=== PATIENT | male | born 1955 | race Caucasian/White ===

== ENCOUNTER 2018-01-01 18:30 | Observation (INO) ==
--- NOTE | 2018-01-01 19:22 | ED ---
HPI General Chief Complaint: Chest Pain Stated Complaint: chest pain Time Seen by Provider: 01/01/18 18:53 History of Present Illness HPI narrative: This is a 62-year-old with a history of coronary artery disease, hypertension, hyperlipidemia, who was today with complaints of chest pain since yesterday. Patient states that he had chest pain last night. He reports that he also woke up this morning with chest pain. Patient reports that he and his is just driven down here today from [place]. He denies any shortness of breath. He denies any nausea. He does report mild bifrontal headache. He describes that chest pain as pressure-like in his mid chest. He does state that the pain started shortly after eating and was thinking that it could be related to the food. He did take 2 nitros earlier this morning which he reports relieve the discomfort. There is no radiation of his pain. He rates the pain as a 6 out of 10 on the pain scale. Related Data Home Medications Medication Instructions Recorded Confirmed amlodipine 5 mg PO DAILY 01/01/18 01/01/18 aspirin [Aspirin Low Dose] 81 mg PO DAILY 01/01/18 01/01/18 atorvastatin 80 mg PO DAILY 01/01/18 01/01/18 citalopram 20 mg PO DAILY 01/01/18 01/01/18 isosorbide mononitrate 90 mg PO DAILY 01/01/18 01/01/18 metoprolol succinate 25 mg PO DAILY 01/01/18 01/01/18 Allergies Allergy/AdvReac Type Severity Reaction Status Date / Time CEPTOCAIN Allergy Anaphylaxis Uncoded 01/01/18 18:57 NO MRI Allergy Bleeding Uncoded 01/01/18 19:07 Review of Systems Constitutional Denies chills and Denies fever(s) Eyes Reports system reviewed and no additional complaints, except as docu ENT Reports system reviewed and no additional complaints, except as docu Cardiovascular Reports chest pain, Denies diaphoresis and Denies dyspnea Respiratory Denies chest congestion and Denies cough Gastrointestinal Denies abdominal pain, Denies diarrhea, Denies nausea and Denies vomiting Genitourinary Reports system reviewed and no additional complaints, except as docu Musculoskeletal Reports system reviewed and no additional complaints, except as [facility] Neurologic Reports system reviewed and no additional complaints, except as docu [facility] Surgical History Surgical History Hx of CABG (Acute) Social History Social History Substance History: No History of Abuse Smoking Status: Former smoker How Often Do You Have a Drink Containing Alcohol: Monthly or less Recent Travel in [facility] within the Last 8 Weeks: No Recent Out of Country Travel within the Last 8 Weeks: No Immunization History Tetanus Immunization: Unsure Exam Narrative Exam Narrative: GENERAL: Well-developed well-nourished male in no acute respiratory distress. SKIN: Focused skin assessment warm/dry. HEAD: Atraumatic. Normocephalic. EYES: No scleral icterus. No injection or drainage. ENT: No nasal bleeding or discharge. Mucous membranes pink and moist. NECK: Trachea midline. Supple. CARDIOVASCULAR: Regular rate and rhythm. No murmur appreciated. RESPIRATORY: No accessory muscle use. Clear to auscultation. Breath sounds equal bilaterally. GASTROINTESTINAL: Abdomen soft, non-tender, nondistended. MUSCULOSKELETAL: No obvious deformities. No clubbing. No cyanosis. 2+ pretibial edema. NEUROLOGICAL: Awake and alert. No obvious cranial nerve deficits. Motor grossly within normal limits. Normal speech. Course Initial Documented Vital Signs Temperature 98.6 F 01/01/18 18:34 Pulse Rate 48 L 01/01/18 18:34 Respiratory Rate 17 01/01/18 18:34 Blood Pressure 144/71 H 01/01/18 18:34 Pulse Oximetry 96 01/01/18 18:34 Last Documented Vital Signs Temperature 98.6 F 01/01/18 18:34 Pulse Rate 49 L 01/01/18 19:38 Respiratory Rate 16 01/01/18 19:38 Blood Pressure 131/65 01/01/18 19:38 Pulse Oximetry 95 01/01/18 19:38 Medical Decision Making [facility] Narrative Medical decision making narrative: 62-year-old male with history of coronary artery disease, hypertension, hyperlipidemia, presents today with complaints of chest pain. Patient states it started yesterday. He reports just coming into town today and given his history he wanted to be checked out. He denies any diaphoresis or shortness of breath. He reports it as a 6 out of 10 and is substernal area. There is no radiation. Patient's EKG shows no evidence of acute ST elevation or depression. There appears to be an old inferior Q waves. First set of cardiac enzymes are within normal limits. Has been given aspirin to bring his level up to 324. He has an inch of nitroglycerin paste placed on his anterior chest wall. His labs do show elevated AST and ALT. He does not believe that he has a previous history of elevated liver enzymes. I recommended we admit him to the chest pain center for rule out protocol. I did inform him that he will need to have his elevated liver enzymes evaluated. This can be done as an outpatient. Unlikely pulmonary embolus secondary to the pain starting before he began his trip. Patient has no calf tenderness or Homans sign. His oxygen saturation is normal and heart rate is bradycardic. He is on beta-blockers.. Medical Screen Exam Complete: Yes Emergency Medical Condition: Yes Differential Diagnosis Differential Diagnosis: ACS versus peptic ulcer disease versus musculoskeletal pain Lab Data Result diagrams: 01/01/18 19:15 01/01/18 19:15 Lab Results 01/01/18 01/01/18 Range/Units 19:15 19:15 WBC 6.8 (4.0-11.0) th/mm3 RBC 4.67 (4.50-5.90) mil/mm3 Hgb 14.4 (13.0-17.0) gm/dL Hct 40.0 (39.0-51.0) % MCV 85.6 (80.0-100.0) fL MCH 30.8 (27.0-34.0) pg MCHC 36.0 (32.0-36.0) % RDW 14.2 (11.6-17.2) % Plt Count 155 (150-450) th/mm3 MPV 8.4 (7.0-11.0) fL Prelim Diff (Auto) Slide review pending Neut % (Auto) 68.5 (16.0-70.0) % Lymph % (Auto) 19.8 (9.0-44.0) % Gentry % (Auto) 8.7 H (0.0-8.0) % Eos % (Auto) 2.5 (0.0-4.0) % Baso % (Auto) 0.5 (0.0-2.0) % Neut # (Auto) 4.6 (1.8-7.7) th/mm3 Lymph # (Auto) 1.3 (1.0-4.8) th/mm3 Gentry # (Auto) 0.6 (0.0-0.9) th/mm3 Eos # (Auto) 0.2 (0.0-0.4) th/mm3 Baso # (Auto) 0.0 (0.0-0.2) th/mm3 WBC Differential . Diff Scan Auto diff confirmed Differential Comment . Platelet Estimate Normal (Normal) Platelet Morphology Normal (Normal) Ovalocytes 1+ H (None) Sodium 140 (136-145) meq/L Potassium 3.8 (3.5-5.1) meq/L Chloride 107 (98-107) meq/L Carbon Dioxide 25.5 (21.0-32.0) meq/L Anion Gap 8 (5-15) meq/L BUN 16 (7-18) mg/dL Creatinine 0.86 (0.60-1.30) mg/dL Estimated GFR Greater than 89 (>89) mL/min Random Glucose 129 H (74-106) mg/dL Calcium 8.3 L (8.5-10.1) mg/dL Total Bilirubin 1.6 H (0.2-1.0) mg/dL AST 247 H (15-37) U/L ALT 270 H (12-78) U/L Alkaline Phosphatase 97 (45-117) U/L Total Creatine Kinase 119 (39-308) U/L CK-MB (CK-2) 3.7 H (0.5-3.6) ng/mL Troponin I 0.02 (0.02-0.05) ng/mL Total Protein 6.7 (6.4-8.2) g/dL Albumin 3.6 (3.4-5.0) g/dL Imaging Data Radiologist's impression: Chest X-Ray 01/01/18 19:04 CONCLUSION: No acute cardiopulmonary disease demonstrated. Discharge Plan Discharge Disposition Patient Disposition: 30 Still Patient Discharge Details Diagnosis: Chest pain, Hypertension, Dyslipidemia, Coronary artery disease, Elevated liver enzymes Physicians Team ED Provider: Curly Felix Primary Care Provider: Primary Care Leta Pillai Attending Provider: Pedro Covarrubias Status ED Status: Admitted Observation Patient
[2018-01-01 19:36] LABS: Baso % (Auto) 0.5 % (0.0-2.0); Eos # (Auto) 0.2 th/mm3 (0.0-0.4); Eos % (Auto) 2.5 % (0.0-4.0); Hemoglobin 14.4 gm/dL (13.0-17.0); Lymph # (Auto) 1.3 th/mm3 (1.0-4.8); Lymph % (Auto) 19.8 % (9.0-44.0); Mean Corpuscular Hemoglobin 30.8 pg (27.0-34.0); Mean Corpuscular Volume 85.6 fL (80.0-100.0); Mean Platelet Volume 8.4 fL (7.0-11.0); Mono # (Auto) 0.6 th/mm3 (0.0-0.9); Mono % (Auto) 8.7 % (0.0-8.0); Neut # (Auto) 4.6 th/mm3 (1.8-7.7); Neut % (Auto) 68.5 % (16.0-70.0); Platelet Count 155 th/mm3 (150-450); Red Blood Count 4.67 mil/mm3 (4.50-5.90); Red Cell Distribution Width 14.2 % (11.6-17.2); White Blood Count 6.8 th/mm3 (4.0-11.0)
--- NOTE | 2018-01-01 19:37 | XR ---
EXAM DATE: 01/01/2018 7:18 PM EDT AGE/SEX: 62 years / Male INDICATIONS: Chest pain for 8 hours. CLINICAL DATA: This is the patient's initial encounter. Patient reports that signs and symptoms have been present for 1 day and indicates a pain score of 4/10. MEDICAL/SURGICAL HISTORY: Cardiovascular disease. CABG. COMPARISON: No prior exams available for comparison. FINDINGS: No infiltrate, effusion or pneumothorax demonstrated. Heart size upper limits of normal. Patient has had previous median sternotomy. CONCLUSION: No acute cardiopulmonary disease demonstrated. Electronically signed by: Nikolay Montilla MD 01/01/2018 7:36 PM EDT
[2018-01-01 19:59] LABS: Ovalocytes 1+; Platelet Estimate Normal (Normal); Platelet Morphology Normal (Normal)
[2018-01-01 20:01] LABS: Albumin 3.6 g/dL (3.4-5.0); Anion Gap 8 meq/L (5-15); Aspartate Aminotransferase 247 U/L (15-37); Blood Urea Nitrogen 16 mg/dL (7-18); Calcium 8.3 mg/dL (8.5-10.1); Carbon Dioxide 25.5 meq/L (21.0-32.0); Chloride 107 meq/L (98-107); Glomerular Filtration Rate Greater Than 89 mL/min (>89); Glucose,Random 129 mg/dL (74-106); Potassium 3.8 meq/L (3.5-5.1); Sodium 140 meq/L (136-145)
[2018-01-01 20:06] LABS: Alanine Aminotransferase 270 U/L (12-78); Alkaline Phosphatase 97 U/L (45-117); Creatine Kinase 119 U/L (39-308); Total Protein 6.7 g/dL (6.4-8.2); Troponin I 0.02 ng/mL (0.02-0.05)
[2018-01-01 20:18] LABS: Creatine Kinase MB 3.7 ng/mL (0.5-3.6)
[2018-01-01 22:38] LABS: Troponin I 0.02 ng/mL (0.02-0.05)
[2018-01-01] MEDS ORDERED: Acetaminophen 325 MG Tablet PO PRN (23:35)
[2018-01-01] MEDS ORDERED: Morphine Inj 4 MG/ML Vial IV.PUSH PRN (23:36)
[2018-01-01] MEDS ORDERED: amLODIPine 5 MG Tablet PO SCH (23:45)
[2018-01-02 01:09] LABS: Troponin I 0.02 ng/mL (0.02-0.05)
[2018-01-02] MEDS ORDERED: Acetaminophen 500 MG Tablet PO PRN (08:00)
--- NOTE | 2018-01-02 08:29 | P.HPCA ---
History of Present Illness Service: Chest pain center Primary Care Physician: No Primary Care Physician Just moved to the area previously [facility] Chief Complaint: Chest pressure/indigestion History of Present Illness: 62-year-old gentleman just moved from [place] with a history of known coronary artery disease. He had documented right coronary artery occlusion treated at [facility] eventually resulting in open heart surgery with a graft to the right coronary artery and a second graft to an unknown vessel. This was accomplished in September of last year. Prior to that time his presentations were predominantly exertional headaches but some chest discomfort. Currently he awoke at about 1 in the morning with what he thought was indigestion. This discomfort has continued throughout the day until he presented to the emergency room. He volunteers that he has a history of ulcer disease and GERD and has been off his diet in fact eating barbecue yesterday. He thought it highly likely that this was the cause of his current discomfort but because of his history was very uneasy and wanted to check his heart. His discomfort is in his left lower chest radiating somewhat into the upper mid abdominal area it is a constant low-grade discomfort rated at highest at 6 out of 10 and does have a slight sensation of pressure-like feeling. He also has had a bit of nausea but no other symptoms associated he did take 2 nitroglycerin during the night thought perhaps he got some relief after the second but was not sure. Patient is also obese and on entering the room he was on sleep Pap machine for sleep apnea. He has none of his records from [facility] with him and has not established with anyone in this area as yet. Review of Systems All other systems reviewed negative except as stated in HPI PMFSH - History History Provided By: Patient - Medical History Medical History: Medical History (Last Updated 01/02/18 @ 08:24 by Pedro Covarrubias MD) Arthritis of right hip Duodenal ulcer disease GERD (gastroesophageal reflux disease) Heartburn Hyperlipidemia Obesity Sleep apnea - Surgical History Surgical History: Surgical History (Last Updated 01/01/18 @ 18:48 by Korin Mcgrath RN) Hx of CABG - Social History I have reviewed the patient's Social History: Yes - Tobacco History Second Hand Smoke Exposure: No Smoking Status: Former smoker - Alcohol History How Often Do You Have a Drink Containing Alcohol: Monthly or less - Substance Use History Substance History: No History of Abuse - Travel History Recent Travel in the [facility] Within the Last 8 Weeks: Yes Recent Travel Out of the Country Within the Last 8 Weeks: No - Immunization History Tetanus Immunization: Unsure Medications and Allergies Active Medications: Active Medications Acetaminophen (Tylenol) 500 mg PO Q4H PRN PRN Reason: HEADACHE Morphine Sulfate (Morphine Inj) 2 mg IV.PUSH Q6H PRN PRN Reason: PAIN > 5 Nitroglycerin (Nitrostat Sl) 0.4 mg SL Q5M PRN PRN Reason: CHEST PAIN Ondansetron HCl (Zofran Inj) 4 mg IV.PUSH Q6H PRN PRN Reason: NAUSEA Sodium Chloride (Ns Flush) 2 ml IV.FLUSH BID COLBY Last Admin: 01/01/18 21:48 Dose: 2 ml Sodium Chloride (Ns Flush) 2 ml IV.FLUSH PRN PRN PRN Reason: FLUSH AFTER USING IV ACCESS Allergies Allergy/AdvReac Type Severity Reaction Status Date / Time CEPTOCAIN Allergy Anaphylaxis Uncoded 01/01/18 18:57 NO MRI Allergy Bleeding Uncoded 01/01/18 19:07 Home Medications Medication Instructions Recorded Confirmed Type amlodipine 5 mg PO DAILY 01/01/18 01/01/18 History aspirin [Aspirin Low Dose] 81 mg PO DAILY 01/01/18 01/01/18 History atorvastatin 80 mg PO DAILY 01/01/18 01/01/18 History citalopram 20 mg PO DAILY 01/01/18 01/01/18 History isosorbide mononitrate 90 mg PO DAILY 01/01/18 01/01/18 History metoprolol succinate 25 mg PO DAILY 01/01/18 01/01/18 History Exam Vital signs: Vital Signs 01/01/18 18:34 01/01/18 18:38 01/01/18 19:09 Temperature 98.6 F Pulse Rate 48 L 50 L 50 L Respiratory Rate 17 17 Blood Pressure 144/71 H 148/80 H Pulse Oximetry 96 96 01/01/18 19:10 01/01/18 19:36 01/01/18 19:38 Temperature Pulse Rate 49 L Respiratory Rate 16 Blood Pressure 131/65 Pulse Oximetry 95 96 95 01/01/18 21:21 01/01/18 21:46 01/02/18 00:00 Temperature 97.7 F 97.7 F Pulse Rate 46 L 48 L Respiratory Rate 18 18 18 Blood Pressure 135/68 137/77 Pulse Oximetry 95 96 01/02/18 04:00 Temperature 97.8 F Pulse Rate 48 L Respiratory Rate 18 Blood Pressure 152/80 H Pulse Oximetry 95 Intake & Output 01/01/18 01/02/18 01/02/18 19:59 06:59 18:59 Weight Other: # Voids Narrative: On entering the room the patient was sleeping on CPAP but awakened easily and was cooperative Head normocephalic atraumatic Eyes PERRLA EOMI sclera clear Mouth mucous membranes moist tongue well papillated no lesions Neck supple no JVD masses nodes or bruits Chest well-healed sternotomy scar clear to auscultation no rales wheezes or rhonchi Cardiovascular PMI is not displaced there is a regular rhythm no gallops rubs or murmurs The abdomen is nontender no guarding or rebound no hepatosplenomegaly Extremities no clubbing cyanosis or edema pulses are intact Neurologic patient is awake alert oriented memory memory is good motor is symmetric to upper and lower extremities cranial nerves are intact Results 01/01/18 19:15 01/01/18 19:15 Cardiac Enzymes 01/01/18 01/01/18 Range/Units 19:15 21:56 AST 247 H (15-37) U/L CK-MB (CK-2) 3.7 H (0.5-3.6) ng/mL Troponin I 0.02 0.02 (0.02-0.05) ng/mL CBC 01/01/18 Range/Units 19:15 WBC 6.8 (4.0-11.0) th/mm3 RBC 4.67 (4.50-5.90) mil/mm3 Hgb 14.4 (13.0-17.0) gm/dL Hct 40.0 (39.0-51.0) % Plt Count 155 (150-450) th/mm3 Neut # (Auto) 4.6 (1.8-7.7) th/mm3 Lymph # (Auto) 1.3 (1.0-4.8) th/mm3 Parmer # (Auto) 0.6 (0.0-0.9) th/mm3 Eos # (Auto) 0.2 (0.0-0.4) th/mm3 Baso # (Auto) 0.0 (0.0-0.2) th/mm3 Comprehensive Metabolic Panel 01/01/18 Range/Units 19:15 Sodium 140 (136-145) meq/L Potassium 3.8 (3.5-5.1) meq/L Chloride 107 (98-107) meq/L Carbon Dioxide 25.5 (21.0-32.0) meq/L BUN 16 (7-18) mg/dL Creatinine 0.86 (0.60-1.30) mg/dL Calcium 8.3 L (8.5-10.1) mg/dL AST 247 H (15-37) U/L ALT 270 H (12-78) U/L Alkaline Phosphatase 97 (45-117) U/L Total Protein 6.7 (6.4-8.2) g/dL Albumin 3.6 (3.4-5.0) g/dL Intake and Output 01/01/18 01/02/18 01/02/18 23:59 06:59 14:59 Other: # Voids Weight - Imaging and Cardiology Imaging: Impressions Chest X-Ray 01/01/18 19:04 CONCLUSION: No acute cardiopulmonary disease demonstrated. Caprini VTE Risk Assessment Caprini VTE Risk Assessment: No/Low Risk (score <= 1) Caprini Risk Assessment Model: Point Value = 1 Point Value = 2 Point Value = 3 Point Value = 5 Age 41-60 Minor surgery BMI > 25 kg/m2 Swollen legs Varicose veins or History of unexplained or recurrent spontaneous Oral contraceptives or hormone replacement Sepsis (< 1 month) Serious lung disease, including pneumonia (< 1 month) Abnormal pulmonary function Acute myocardial infarction Congestive heart failure (< 1 month) History of inflammatory bowel disease Medical patient at bed rest Age 61-74 Arthroscopic surgery Major open surgery (> 45 min) Laparoscopic surgery (> 45 min) Malignancy Confined to bed (> 72 hours) Immobilizing plaster cast Central venous access Age >= 75 History of VTE Family history of VTE Factor V Leiden Prothrombin [id number] Lupus anticoagulant Anticardiolipin antibodies Elevated serum homocysteine Heparin-induced thrombocytopenia Other congenital or acquired thrombophilia Stroke (< 1 month) Elective arthroplasty Hip, pelvis, or leg fracture Acute spinal cord injury (< 1 month) Prophylaxis Regimen: Total Risk Factor Score Risk Level Prophylaxis Regimen 0-1 Low Early ambulation 2 Moderate Order ONE of the following: *Sequential Compression Device (SCD) *Heparin 5000 units SQ BID 3-4 Higher Order ONE of the following medications: *Heparin 5000 units SQ TID *Enoxaparin/Lovenox 40 mg SQ daily (WT < 150 kg, CrCl > 30 mL/min) *Enoxaparin/Lovenox 30 mg SQ daily (WT < 150 kg, CrCl > 10-29 mL/min) *Enoxaparin/Lovenox 30 mg SQ BID (WT < 150 kg, CrCl > 30 mL/min) AND/OR *Sequential Compression Device (SCD) 5 or more Highest Order ONE of the following medications: *Heparin 5000 units SQ TID (Preferred with Epidurals) *Enoxaparin/Lovenox 40 mg SQ daily (WT < 150 kg, CrCl > 30 mL/min) *Enoxaparin/Lovenox 30 mg SQ daily (WT < 150 kg, CrCl > 10-29 mL/min) *Enoxaparin/Lovenox 30 mg SQ BID (WT < 150 kg, CrCl > 30 mL/min) AND *Sequential Compression Device (SCD) Assessment and Plan - Plan This patient's presentation is atypical but in view of his background and known coronary artery disease further evaluation will be carried out. He is ruled out for ACS and is not able to walk well due to his arthritis and so will be evaluated using nuclear scan. His liver enzymes are also slightly elevated he is instructed in regards to follow-up with an outpatient physician after discharge. He is also reminded in terms of high salt diet and his high blood pressure and in terms of readdressing issues with his obesity. H&P: Quality - VTE Deep Vein Thrombosis/Pulmonary Embolism Present on Admission: No
[2018-01-02] MEDS ORDERED: Regadenoson Inj 0.4 MG/5 ML Syringe IV.PUSH ONE (09:27)
--- NOTE | 2018-01-02 10:08 | ECG ---
Date Performed: 01/02/2018 Time Performed: 01:00:35 PTAGE: 62 years EKG: SINUS BRADYCARDIA MINIMAL VOLTAGE CRITERIA FOR LVH, CONSIDER NORMAL VARIANT INFERIOR MYOCAR DIAL INFARCTION ABNORMAL ECG No significant change PREVIOUS TRACING : 01/01/2018 22.03 DOCTOR: Pedro Covarrubias Interpretating Date/Time 01/02/2018 10:08:03
--- NOTE | 2018-01-02 10:09 | ECG ---
Date Performed: 01/01/2018 Time Performed: 22:03:45 PTAGE: 62 years EKG: SINUS BRADYCARDIA LOW QRS VOLTAGE IN PRECORDIAL LEADS INFERIOR MYOCARDIAL INFARCTION ABNORM AL ECG No significant change PREVIOUS TRACING : 01/01/2018 18.49 DOCTOR: Pedro Covarrubias Interpretating Date/Time 01/02/2018 10:08:59
[2018-01-02] MEDS ORDERED: Citalopram 20 MG Tablet PO SCH (10:15)
[2018-01-02] MEDS ORDERED: amLODIPine 5 MG Tablet PO SCH (10:15)
--- NOTE | 2018-01-02 10:46 | NM ---
EXAM DATE: 01/02/2018 10:35 AM EST AGE/SEX: 62 years / Male INDICATIONS:Angina. . Lower left chest pain radiating to the abdomen. CLINICAL DATA: This is the patient's initial encounter. Patient reports that signs and symptoms have been present for 1 day and indicates a pain score of 6/10. MEDICAL/SURGICAL HISTORY: Hypercholesterolemia. Gastroesophageal reflux disease. CABG. COMPARISON: No prior exams available for comparison. DOSE: 11 mCi Tc 99m Myoview at rest 35 mCi [id number] at stress 0.4 mg Lexiscan STRESS SYMPTOMS: Dyspnea and head pressure. EJECTION FRACTION: 51 % TECHNIQUE: The patient underwent pharmacologic stress with infusion of prescribed dose. Continuous ECG tracing was monitored during stress. Gated SPECT imaging was performed after stress and conventi onal SPECT imaging was performed at rest. The examination was performed on a SPECT/CT scanner, both attenuation and non-corrected datasets were reviewed. FINDINGS: Distribution: The maximum perfused segment at stress is in the anterolateral wall. Perfusion Study: A fixed perfusion abnormalities identified in the inferior wall. There is focal re versible stress-induced perfusion abnormality in the lateral wall and along the margins of the fixed defect. Normal perfusion remains evident in the anterior wall and septum. Gated Study: The inferior wall is hypokinetic. The ejection fraction is calculated at 51%. RISK CATEGORY: Intermediate (1-3 % Annual Mortality Rate) CONCLUSION: 1. Fixed perfusion abnormality in the inferior wall with associated hypokinesia characteristic of a region of myocardial infarction. 2. Focal reversible stress induced hypoperfusion is identified in the lateral wall and along the mar gins of the inferior wall infarct. 3. Low normal ejection fraction. Electronically signed by: Juan José Moffett MD 01/02/2018 10:45 AM EST
[2018-01-02 11:17] VITALS: RESP 16
[2018-01-02] MEDS ORDERED: Isosorbide Mononitrate 30 MG ER 24HR Tablet (Imdur) PO SCH (14:00)
--- NOTE | 2018-01-02 15:52 | P.PNCA ---
Subjective Interval history: Dr. Marie spoke in length with patient, given options of increasing mediations with follow up in office in 2 weeks or cardiac catheterization in morning. Medical records received from [facility]. Past cardiac testing 04/20/2017 Cardiac catheterization (Dr. Catracho Estevez) Diagnostic summery-Widley patent SVG:PDA:PLV skip graft, mild LCA CAD, sluggish LCA coronary flow. LM-patent LAD-mild, slo flow CFX-mild, slow flow RCA-patent proximal and mid stents; competitive flow from SVG SVG:PDA:PLV widely paten with excellent runoff PLAN AND RECOMMENDATION: Add amlodipine 2.5 mg for MVD/spasm empirically 10/11/2016 CABG (Dr Vyas)-SVG to PDA, PLV 10/09/2016 Cardiac catheterization (Dr. Catracho Estevez) Diagnostic summary- patient RCA stents, severe PLV lesion, moderate RPDA lesion, mild LCA CAD LM-patent, LAD-mild, somewhat impaired flow, Ramus-30%ostial, CFX-mild RCA-widely patent stents. 85% mid PLV focal lesion, progressed since 05/2016 films. 60% mid RPDA lesion. Prior coarse air tip fragment stably retained in the distal PDA zone PLAN and RECOMMENDATION: Cardiac surgical evaluation for expected CABG; favor bypass with graft to PLV and PDA 06/04/2016 Cardiac catheterization (Dr. 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 No indication for surgery. Have spoken with Dibsie about whether tip is MRI compatible (no metal in tip by design, per [employer]). Anticipate DC in a.m. and follow-up with cardiology Dr. Cornejo. If recurrent limiting angina can consider PTCA of mid RPDA (small vessel 1.5-2mm) Medications and Allergies Active Medications: Active Medications Acetaminophen (Tylenol) 500 mg PO Q4H PRN PRN Reason: HEADACHE Last Admin: 01/02/18 15:12 Dose: 500 mg Amlodipine Besylate (Norvasc) 5 mg PO DAILY [facility] Last Admin: 01/02/18 11:39 Dose: Not Given Aspirin (Ecotrin) 81 mg PO DAILY [facility] Last Admin: 01/02/18 11:39 Dose: 81 mg Atorvastatin Calcium (Lipitor) 80 mg PO DAILY [facility] Citalopram Hydrobromide (Celexa) 20 mg PO DAILY [facility] Last Admin: 01/02/18 11:39 Dose: 20 mg Isosorbide Mononitrate (Imdur) 90 mg PO DAILY [facility] Metoprolol Succinate (Toprol Xl) 25 mg PO DAILY [facility] Last Admin: 01/02/18 11:39 Dose: Not Given Morphine Sulfate (Morphine Inj) 2 mg IV.PUSH Q6H PRN PRN Reason: PAIN > 5 Nitroglycerin (Nitrostat Sl) 0.4 mg SL Q5M PRN PRN Reason: CHEST PAIN Ondansetron HCl (Zofran Inj) 4 mg IV.PUSH Q6H PRN PRN Reason: NAUSEA Sodium Chloride (Ns Flush) 2 ml IV.FLUSH BID [facility] Last Admin: 01/02/18 08:22 Dose: 2 ml Sodium Chloride (Ns Flush) 2 ml IV.FLUSH PRN PRN PRN Reason: FLUSH AFTER USING IV ACCESS Allergies Allergy/AdvReac Type Severity Reaction Status Date / Time CEPTOCAIN Allergy Anaphylaxis Uncoded 01/01/18 18:57 NO MRI Allergy Bleeding Uncoded 01/01/18 19:07 Home Medications Medication Instructions Recorded Confirmed Type amlodipine 5 mg PO DAILY 01/01/18 01/01/18 History aspirin [Aspirin Low Dose] 81 mg PO DAILY 01/01/18 01/01/18 History atorvastatin 80 mg PO DAILY 01/01/18 01/01/18 History citalopram 20 mg PO DAILY 01/01/18 01/01/18 History isosorbide mononitrate 90 mg PO DAILY 01/01/18 01/01/18 History metoprolol succinate 25 mg PO DAILY 01/01/18 01/01/18 History Physical Exam Vital signs: Vital Signs 01/01/18 18:34 01/01/18 18:38 01/01/18 19:09 Temperature 98.6 F Pulse Rate 48 L 50 L 50 L Respiratory Rate 17 17 Blood Pressure 144/71 H 148/80 H Pulse Oximetry 96 96 01/01/18 19:10 01/01/18 19:36 01/01/18 19:38 Temperature Pulse Rate 49 L Respiratory Rate 16 Blood Pressure 131/65 Pulse Oximetry 95 96 95 01/01/18 21:21 01/01/18 21:46 01/02/18 00:00 Temperature 97.7 F 97.7 F Pulse Rate 46 L 48 L Respiratory Rate 18 18 18 Blood Pressure 135/68 137/77 Pulse Oximetry 95 96 01/02/18 04:00 01/02/18 08:00 01/02/18 08:50 Temperature 97.8 F 97.8 F Pulse Rate 48 L 43 L Respiratory Rate 18 20 Blood Pressure 152/80 H 139/79 Pulse Oximetry 95 95 92 L 01/02/18 11:16 Temperature 97.7 F Pulse Rate 51 L Respiratory Rate 16 Blood Pressure 122/62 Pulse Oximetry 95 Intake & Output 01/01/18 01/02/18 01/02/18 19:59 06:59 18:59 Weight Other: # Voids Results 01/01/18 19:15 01/01/18 19:15 Cardiac Enzymes 01/01/18 01/01/18 Range/Units 19:15 21:56 AST 247 H (15-37) U/L CK-MB (CK-2) 3.7 H (0.5-3.6) ng/mL Troponin I 0.02 0.02 (0.02-0.05) ng/mL CBC 01/01/18 Range/Units 19:15 WBC 6.8 (4.0-11.0) th/mm3 RBC 4.67 (4.50-5.90) mil/mm3 Hgb 14.4 (13.0-17.0) gm/dL Hct 40.0 (39.0-51.0) % Plt Count 155 (150-450) th/mm3 Neut # (Auto) 4.6 (1.8-7.7) th/mm3 Lymph # (Auto) 1.3 (1.0-4.8) th/mm3 Tyrrell # (Auto) 0.6 (0.0-0.9) th/mm3 Eos # (Auto) 0.2 (0.0-0.4) th/mm3 Baso # (Auto) 0.0 (0.0-0.2) th/mm3 Comprehensive Metabolic Panel 01/01/18 Range/Units 19:15 Sodium 140 (136-145) meq/L Potassium 3.8 (3.5-5.1) meq/L Chloride 107 (98-107) meq/L Carbon Dioxide 25.5 (21.0-32.0) meq/L BUN 16 (7-18) mg/dL Creatinine 0.86 (0.60-1.30) mg/dL Calcium 8.3 L (8.5-10.1) mg/dL AST 247 H (15-37) U/L ALT 270 H (12-78) U/L Alkaline Phosphatase 97 (45-117) U/L Total Protein 6.7 (6.4-8.2) g/dL Albumin 3.6 (3.4-5.0) g/dL Intake and Output 01/02/18 01/02/18 01/02/18 06:59 14:59 22:59 Other: # Voids - Imaging and Cardiology Imaging: Impressions Chest X-Ray 01/01/18 19:04 CONCLUSION: No acute cardiopulmonary disease demonstrated. Myocardial Perfusion Scan Nuc Med 01/02/18 00:00 CONCLUSION: 1. Fixed perfusion abnormality in the inferior wall with associated hypokinesia characteristic of a region of myocardial infarction. 2. Focal reversible stress induced hypoperfusion is identified in the lateral wall and along the margins of the inferior wall infarct. 3. Low normal ejection fraction. Assessment and Plan - Plan This patient's presentation is atypical but in view of his background and known coronary artery disease further evaluation will be carried out. He is ruled out for ACS and is not able to walk well due to his arthritis and so will be evaluated using nuclear scan. His liver enzymes are also slightly elevated he is instructed in regards to follow-up with an outpatient physician after discharge. He is also reminded in terms of high salt diet and his high blood pressure and in terms of readdressing issues with his obesity. Abnormal Lexiscan. 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 Dr. Marie discussed in length possible plans of action. Patient requests to speak with before making decision to be discharged verses cardiac authorization in a.m. Once patient decides will relay decision to Dr Marie. Records received from [facility] include 125 pages which have been placed in patient record for scanning.
[2018-01-02 16:39] VITALS: BP 132/66; PULSE 50; TEMP 98.2; O2SAT 93
--- NOTE | 2018-01-02 17:58 | MB ---
cc: Brett Marie DO DATE: 01/02/2018 REASON FOR CONSULTATION: Abnormal stress test. HISTORY OF PRESENT ILLNESS: Fredo Quiñones is a pleasant 62-year-old male who presented to [facility] due to what appears to be indigestion. He just moved here from [place]. With the current move and multiple issues within the family, he has not been eating as he should. He states that he ate barbecue last night for dinner. He woke up in the middle of the night with discomfort in his epigastric area and an uneasy feeling. He was nauseous with the event. On arrival to the emergency room, he felt fine with no other complaints. He was ruled out for a myocardial infarction with negative troponins. He underwent a Lexiscan stress test which was read as a fixed perfusion in the inferior wall and a focal, reversible, stress-induced hypoperfusion in the lateral wall along the margins of the inferior wall infarct and intermediate risk. PAST MEDICAL HISTORY: 1. Coronary artery disease. 2. Arthritis. 3. Duodenal ulcer disease. 4. Gastroesophageal reflux disease. 5. Hyperlipidemia. 6. Obesity. 7. Sleep apnea. PAST SURGICAL HISTORY: 1. Cardiac catheterization (04/20/2017 at [facility]): Left main patent, LAD mild disease, mild slow flow within the left circumflex with mild disease, RCA with competitive flow from saphenous vein graft, saphenous vein graft which skips from the PDA to the PLB is widely patent with excellent runoff. 2. CABG x2 (10/11/2016): Saphenous vein graft to PDA skipping to PLB. 3. Cardiac catheterization (10/09/2016): Left main patent, LAD mild disease, left circumflex mild disease, RCA stents widely patent. An 85% posterolateral branch and 60% PDA lesion. Prior Corsair tip fragment retained in the distal PDA. 4. Cardiac catheterization (06/04/2016): Attempted mid RCA WELDER AND FITTER with Corsair catheter tip fractured off in the vessel. ALLERGIES: SEPTOCAINE. MEDICATIONS: 1. Imdur 90 mg daily. 2. Citalopram 20 mg daily. 3. Lipitor 80 mg daily. 4. Norvasc 5 mg daily. 5. Aspirin 81 mg daily. 6. Toprol-XL 25 mg daily. FAMILY HISTORY: He denies sudden cardiac within the family. SOCIAL HISTORY: The patient is a former smoker. He denies alcohol or drug abuse. REVIEW OF SYSTEMS: Fourteen systems were reviewed including osteopathic. Pertinent positives and negatives above, otherwise negative. PHYSICAL EXAMINATION: VITAL SIGNS: Temperature 97.7, heart rate 51, blood pressure 132/66, respirations 16, pulse oximetry 95% on room air. GENERAL: The patient appears well, in no acute distress. Alert, awake and oriented x3. HEENT: Extraocular muscles intact. Mucous membranes moist. NECK: Supple. No JVD at 45 degrees. No carotid bruits heard bilaterally. Carotid upstroke is brisk in nature. HEART: Regular rate and rhythm. Positive first and second heart tones with no noted murmurs, gallops, or rubs. LUNGS: Clear to auscultation bilaterally. No wheezes, rales, or rhonchi. ABDOMEN: Soft, nontender, nondistended. No organomegaly noted. EXTREMITIES: No clubbing, cyanosis, or edema. Femoral and distal pulses are intact bilaterally. NEUROLOGIC: No focal deficits. SKIN: Warm, dry, and intact. OSTEOPATHIC: No kyphoscoliosis, lordosis, or paraspinal tender points. LABORATORY DATA: Hemoglobin 14.4, hematocrit 40.0, platelets 155, potassium 3.8, BUN 16, creatinine 0.86. Troponin 0.02. Electrocardiogram (01/02/2018 at 0100): Sinus bradycardia, voltage criteria for LVH, inferior myocardial infarction. IMPRESSION: 1. Questionable chest pain, possible indigestion. 2. Abnormal stress test showing inferior infarct with possible teto-infarct ischemia laterally. 3. Coronary artery disease with previous Corsair fractured tip in right coronary artery during WELDER AND FITTER, status post saphenous vein graft to posterior descending artery as well as posterolateral branch. 4. Baseline bradycardia. RECOMMENDATIONS: 1. Mr. Quiñones presented with symptoms which appear to be more indigestion after eating barbecue. 2. He underwent a stress test which was read as inferior infarct with teto-infarct ischemia and intermediate risk. I went over this with the radiologist. Ultimately, I believe that this is an inferior infarct with at most a minimal teto-infarct ischemia. 3. I discussed with the patient his options, considering a cardiac catheterization which he recently had in April versus seeing me in the office in the near future, and if any further episodes considering cardiac catheterization once again. 4. He discussed this with his and has decided that he will plan to see me in the office in the next 1-2 weeks. He understands that if he has any further episodes that he should come back to the emergency room immediately. He does have nitroglycerin at home if necessary. 5. He does have some mild bradycardia, and this is most likely iatrogenic due to being on beta blockers. He has no symptoms of syncope or presyncope, and so we will continue this at this time. Thank you for allowing me to see Fredo Ishmael. If there are any questions, please do not hesitate to call. DO ASHLEY Retana/jon , 04:59 PM , 05:16 PM
--- NOTE | 2018-01-02 23:20 | ECG ---
Date Performed: 01/01/2018 Time Performed: 18:49:35 PTAGE: 62 years EKG: SINUS BRADYCARDIA INFERIOR MYOCARDIAL INFARCTION ABNORMAL ECG NO PREVIOUS TRACING DOCTOR: Brett Marie Interpretating Date/Time 01/02/2018 23:20:08
--- NOTE | 2018-01-03 07:24 | TR ---
Date Performed: 01/02/2018 Time Performed: 09:37:13 DOCTOR: Dax Connors DRUG LIST: CLINICAL HISTORY: REASON FOR TEST: CHEST PAIN REASON FOR ENDING: OBSERVATION: CONCLUSION: COMMENTS: Lexiscan stress test was performed under standard four minute protocol. Radionuclide was injected one minute prior to ending the test. No electrocardiographic abormalities were present t o suggest ischemia. Nuclear imaging and interpretation are pending.
== END 2018-01-02 17:19 | disposition home or self-care (01) ==
LOC: NEPC 18:30 → NEDA 18:30 → NEPFCDU 21:10
PROVIDERS: ADMIT Internal Medicine Interventional Cardiology; ATTEND Internal Medicine Interventional Cardiology